=== PATIENT | female | born 1965 | race Caucasian/White ===

== ENCOUNTER 2018-10-19 20:34 | Emergency (ER) | payer OTHER ==
[~2018-10-19] VITALS: Ht 162.6 cm; Wt 88.5 kg
[~2018-10-19 20:34] MED LIST: DIAZ5 PO; OXYACE5T PO; PRED20 PO
[2018-10-19] MEDS ORDERED: LIDO700A20 TOP (20:54)
[2018-10-19] MEDS ORDERED: Cyclobenzaprine5 MG PO (20:54)
[2018-10-19] MEDS ORDERED: IBUP800 PO (20:54)
== END 2018-10-19 22:20 | disposition home or self-care (01) ==
LOC: ER 20:34
DX: M54.41 Lumbago with sciatica, right side (principal); Z79.52 Long term (current) use of systemic steroids; Z79.899 Other long term (current) drug therapy; Z79.891 Long term (current) use of opiate analgesic
CPT/HCPCS: 96372; 99283-25; J1100; J1885; J3010

== ENCOUNTER 2023-03-22 07:55 | Day surgery (SDC) | payer OTHER ==
[~2023-03-22 07:55] MED LIST changes: +Cyclobenzaprine5 MG PO; +IBUP800 PO; +LIDO700A20 TOP
[2023-03-23] MEDS ORDERED: ACET500 PO (11:35)
[2023-03-23] MEDS ORDERED: ATOR20 PO (11:35)
[2023-03-23] MEDS ORDERED: EUTHYROX88 MCG PO (11:36)
== END 2023-03-22 23:10 | disposition home or self-care (01) ==
LOC: MOI US 07:55
DX: C50.112 Malignant neoplasm of central portion of left female breast (principal); Z17.0 Estrogen receptor positive status [ER+]
CPT/HCPCS: 19285; 77065; A4648; G0279

== ENCOUNTER 2023-03-24 09:44 | Day surgery (SDC) | payer OTHER ==
[~2023-03-24] VITALS: Ht 172.7 cm; Wt 88.8 kg
[2023-03-24] VITALS (15 sets, daily range): BP systolic 133–163; BP diastolic 76–105
[~2023-03-24 09:44] MED LIST changes: +ACET500 PO; +ATOR20 PO; +EUTHYROX88 MCG PO
--- NOTE | 2023-03-24 12:13 | NUR ---
Ambulatory in Day Surgery Patient confirms NPO status and agrees with scheduled surgery. History, Chart, Medications and Allergies reviewed before start of procedure.Pre-Op teaching done. Pt verbalizes understanding. Patient States Post-Procedure ride home has been arranged.
[2023-03-24] MEDS ORDERED: STEGLATRO5 MG (12:21)
--- NOTE | 2023-03-24 14:40 | NUR ---
PT WAS FEELING A LITTLE LIGHT HEADED, RE-CHECK CBG WITH A RESULT OF 64. DR. PERALES AT BEDSIDE AT THE TIME, VERBAL ORDER FOR D5 250ML.
--- NOTE | 2023-03-24 15:58 | NUR ---
03/24/23 1558 AYDEE ROSEN 2.5ML OF METHYLINE BLUE 10MG/ML WAS INJECTED TO OPSITE BY DR. PERALES AT 1515 IN OPERATING ROOM.
--- NOTE | 2023-03-24 17:29 | NUR ---
PT TO DAY SURGERY STEP DOWN FROM PACU. PT ALERT AND ORIENTED. ABLE TO MOVE SELF IN BED. PAIN LEVEL IS A 3. PT HAS BREAST BINDER IN PLACE, LOOSE GUAZE IN OVER INCISION IN LEFT BREAST, WHICH IS C/D/I WITH DERMABOND.
--- NOTE | 2023-03-24 17:32 | NUR ---
WATER AND CRACKERS GIVEN TO PT.
--- NOTE | 2023-03-24 17:45 | NUR ---
ICE PACK GIVEN TO PT
--- NOTE | 2023-03-24 17:50 | NUR ---
Discharge instructions reviewed with patient. Patient verbalizes understanding. Copy given to patient to take home. Patient States Post-Procedure ride home has been arranged.
--- NOTE | 2023-03-24 18:05 | NUR ---
Patient up to Ambulate independently. Gait steady.
--- NOTE | 2023-03-24 18:15 | NUR ---
Discharged via wheelchair to private car for ride home.
== END 2023-03-24 23:02 | disposition home or self-care (01) ==
LOC: NM 09:44 → ORSCMMR 09:44 → NM 09:45 → ORSCMMR 09:45 → NM 11:00 → ORSCMMR 23:02
PROVIDERS: Surgery
PROC: 0HBU0ZZ Excision of Left Breast, Open Approach (ICD-10-PCS; principal; 2023-03-24 12:00)
PROC: 07B60ZX Excision of Left Axillary Lymphatic, Open Approach, Diagnostic (ICD-10-PCS; principal; 2023-03-24 12:00)
DX: C50.112 Malignant neoplasm of central portion of left female breast (principal); Z17.0 Estrogen receptor positive status [ER+]; D36.0 Benign neoplasm of lymph nodes; E78.00 Pure hypercholesterolemia, unspecified; E11.9 Type 2 diabetes mellitus without complications; Z87.891 Personal history of nicotine dependence; E78.5 Hyperlipidemia, unspecified; E03.9 Hypothyroidism, unspecified; Z79.899 Other long term (current) drug therapy
CPT/HCPCS: 38792; 76098; 82947; 88307; 88342; 93005; 93010; A9270; A9520; J0690; J1100; J1885; J2405; J2704; J3010; J7060; J7120

== ENCOUNTER 2025-01-02 06:20 | Day surgery (SDC) | payer OTHER ==
[~2025-01-02] VITALS: Ht 172.7 cm; Wt 79.8 kg
[2025-01-02] VITALS (22 sets, daily range): BP systolic 79–155; BP diastolic 46–80
[~2025-01-02 06:20] MED LIST changes: +ANASTROZOLE1 M7 PO; +STEGLATRO5 MG; +VITAMIN D5000 UNIT PO; +ZOLEDRONIC ACID4 M1 IV
--- NOTE | 2025-01-02 07:20 | NUR ---
Ambulatory in Day Surgery WITH STEADY GAIT. History, Chart, Medications and Allergies reviewed before start of procedure. Patient confirms NPO status and agrees with scheduled surgery. Pre-Op teaching done. Pt verbalizes understanding. Patient States Post-Procedure ride home has been arranged WITH BROTHER NATASHA. 2 IV ATTEMPTS BY JESSE Wilks RN FAILED VEIN BLEW. 1 IV ATTEMPTED BY DINESH Hackett RN, FAILED VEIN BLEW. 2 IVS ATTEMTED BY ZOHRA Angeles RN. FAILED VEINS BLEW. SUCCESSFUL ATTEMPT BY MEJIA Wilks RN IN LEFT HAND.
--- NOTE | 2025-01-02 07:57 | NUR ---
01/02/25 Pari Jarrett CONFIRMED AND REVIEWED H&P, MEDCICATIONS, ALLERGIES, MEDICAL HISTORY, RESPIRATORY HISTORY, VITAL SIGNS, 3-LEAD EKG, CONSENTS, AND PHYSICIAN ORDERS. PATIENT CONFIRMS NPO STATUS AND AGREES WITH SCHEDULED PROCEDURE. MONITOR INTACT WITH CONTINUOUS PULSE OXIMETRY, CAPNOGRAPHY, 3-LEAD EKG, INTERMITTENT BP. SUPPLEMENTAL O2 TO BE TITRATED THROUGHOUT PROCEDURE TO MAINTAIN O2 SATURATION ABOVE 90%. PATIENT DETERMINED TO BE ASA APPROPRIATE FOR PROPOFOL SEDATION PRIOR TO START OF PROCEDURE BY DR. PERALES.
[2025-01-02] MEDS ORDERED: Midazolam HCl 1MG / ML 2ML Vial ONE (08:05)
--- NOTE | 2025-01-02 09:00 | NUR ---
Patient up to Ambulate independently. Gait steady. Discharge instructions reviewed with patient. Patient verbalizes understanding. Copy given to patient to take home. Discharged via wheelchair to private car for ride home.
== END 2025-01-02 09:00 | disposition home or self-care (01) ==
LOC: ORD 06:20 → ORSCMMR 06:20 → ORD 08:00 → ORSCMMR 08:00
PROVIDERS: Surgery
PROC: 0DBP8ZX Excision of Rectum, Via Natural or Artificial Opening Endoscopic, Diagnostic (ICD-10-PCS; principal; 2025-01-02 08:00)
PROC: 0DBH8ZX Excision of Cecum, Via Natural or Artificial Opening Endoscopic, Diagnostic (ICD-10-PCS; principal; 2025-01-02 08:00)
DX: Z12.11 Encounter for screening for malignant neoplasm of colon (principal); D12.0 Benign neoplasm of cecum; K62.1 Rectal polyp; R19.5 Other fecal abnormalities; E78.5 Hyperlipidemia, unspecified; E03.9 Hypothyroidism, unspecified; E11.9 Type 2 diabetes mellitus without complications; Z85.3 Personal history of malignant neoplasm of breast; Z79.899 Other long term (current) drug therapy; Z87.891 Personal history of nicotine dependence
CPT/HCPCS: 82947; 88305; J2250; J2704; J7120